=== PATIENT | female | born 1965 | race African-American/Black ===

== ENCOUNTER 2019-03-20 11:11 | Inpatient (IN) ==
[2019-03-20 12:03] LABS: Hemoglobin 15.1 g/dL (11.5-15.4); Mean Corpuscular HGB Conc 34.3 g/dL (31.6-35.5); Mean Corpuscular Volume 99.1 fL (83.0-100.0); Mean Platelet Volume 12.3 fL (9.4-12.4); Platelet Count 149 K/mcL (140-400); Red Blood Count 4.44 M/mcL (3.82-4.97); Red Cell Distribution Width 13.4 % (11.5-14.5); White Blood Count 6.1 K/mcL (4.3-11.1)
[2019-03-20 12:35] LABS: BUN/Creatinine Ratio 11 (6-26); Blood Urea Nitrogen 10 mg/dL (6-20); Calcium 9.8 mg/dL (8.6-10.3); Carbon Dioxide 27 mEq/L (23-29); Chloride 100 mEq/L (98-107); Glucose 243 mg/dL (70-105); Osmolality,Calculated 297 (280-300); Sodium 140 mEq/L (136-145); Troponin I < 0.03 ng/mL (< 0.04); eGFR For African Americans > 60 (> 60); eGFR For Non-African Americans > 60 (> 60)
[2019-03-20] MEDS ORDERED: Naloxone 0.4 MG/ML INJ IVP PRN (13:34)
[2019-03-20] MEDS ORDERED: *HR* Dextrose 50 % in Water (Syg) 50 ML SYRINGE IVP PRN (13:36)
[2019-03-20] MEDS ORDERED: Dextrose Gel 15 GM/37.5 ML TUBE PO PRN ×2 (13:36)
[2019-03-20] MEDS ORDERED: D5% in Water 1,000 ML IVC PRN (13:36)
[2019-03-20] MEDS ORDERED: Gadolinium Contrast Agent (WT Based) IV PRN (13:50)
[2019-03-20] MEDS: Aspirin 81 MG TAB.CHEW PO SCH (16:22)
[2019-03-20] MEDS: Insulin LISPRO 300 UNITS/3 ML VIAL SQ SCH (17:57)
[2019-03-20] MEDS ORDERED: Insulin LISPRO 300 UNITS/3 ML VIAL SQ SCH (21:00)
[2019-03-21 01:06] LABS: Basophils % 0.8 %; Eosinophils # 0.2 K/mcL (0.0-0.6); Eosinophils % 2.8 %; Hemoglobin 13.9 g/dL (11.5-15.4); Immature Granulocytes % 0.2 % (0-4); Mean Corpuscular HGB Conc 34.8 g/dL (31.6-35.5); Mean Corpuscular Hemoglobin 34.1 pg (28.0-33.3); Mean Platelet Volume 12.2 fL (9.4-12.4); Monocytes # 0.5 K/mcL (0.0-1.3); Monocytes % 9.6 %; Neutrophils # 2.6 K/mcL (1.6-8.9); Platelet Count 140 K/mcL (140-400); Red Blood Count 4.08 M/mcL (3.82-4.97); Red Cell Distribution Width 13.3 % (11.5-14.5); Segmented Neutrophils % 49.6 %; White Blood Count 5.3 K/mcL (4.3-11.1)
[2019-03-21 01:25] LABS: Alanine Aminotransferase 10 Units/L (7-52); Albumin 3.7 g/dL (3.5-5.7); Albumin/Globulin Ratio 1.3 (1.1-2.2); Alkaline Phosphatase 43 Units/L (34-104); Aspartate Amino Transferase 14 Units/L (13-39); BUN/Creatinine Ratio 12 (6-26); Bilirubin,Total 0.7 mg/dL (0.3-1.0); Blood Urea Nitrogen 11 mg/dL (6-20); Calcium 9.2 mg/dL (8.6-10.3); Carbon Dioxide 25 mEq/L (23-29); Chloride 100 mEq/L (98-107); Chol/HDL Ratio 2.9 (0-4.9); Cholesterol 191 mg/dL (< 200); Globulin 2.8 g/dL (2.4-3.5); Glucose 237 mg/dL (70-105); HDL Cholesterol 67 mg/dL (40-59); LDL Cholesterol,Calculated 105 mg/dL (0-99); Magnesium 1.6 mg/dL (1.6-2.6); Osmolality,Calculated 287 (280-300); Phosphorous 3.3 mg/dL (2.7-4.5); Potassium 3.2 mEq/L (3.5-5.1); Sodium 135 mEq/L (136-145); Total Protein 6.5 g/dL (6.4-8.9); Triglycerides 96 mg/dL (< 150); eGFR For African Americans > 60 (> 60); eGFR For Non-African Americans > 60 (> 60)
[2019-03-21 03:53] LABS: Estimated Average Glucose 189 mg/dl
[2019-03-21] MEDS ORDERED: *HR* Heparin 5,000 UNIT/ML VIAL SQ SCH (06:00)
[2019-03-21 07:09] VITALS: BP 145/80
[2019-03-21] MEDS: Insulin LISPRO 300 UNITS/3 ML VIAL SQ SCH (07:48)
[2019-03-21] MEDS: Metoprolol 100 MG TABLET PO SCH ×3 (07:48→10:02)
[2019-03-21] MEDS: Aspirin 81 MG TAB.CHEW PO SCH (07:51)
[2019-03-21] MEDS ORDERED: Losartan/HCTZ 50-12.5 TABLET PO SCH (09:00)
[2019-03-21] MEDS ORDERED: Sulfamethoxazole/Trimeth DS 1 EACH TABLET PO SCH (09:00)
[2019-03-21] MEDS ORDERED: amLODIPine 5 MG TABLET PO SCH ×2 (09:00)
== END 2019-03-21 13:23 | disposition home or self-care (01) | DRG 66 ==
LOC: EMEROOARM 11:11 → 3BNU 13:34 → SUATTDRO 16:30 → 3BNU 17:35
PROVIDERS: ADMIT Student in an Organized Health Care Education/Training Program; ATTEND Internal Medicine

== ENCOUNTER 2019-03-21 21:35 | Observation (INO) ==
[2019-03-21 22:04] LABS: Hematocrit 42.7 % (35.3-44.9); Hemoglobin 14.8 g/dL (11.5-15.4); Mean Corpuscular HGB Conc 34.7 g/dL (31.6-35.5); Mean Corpuscular Hemoglobin 33.5 pg (28.0-33.3); Mean Corpuscular Volume 96.6 fL (83.0-100.0); Mean Platelet Volume 12.4 fL (9.4-12.4); Platelet Count 159 K/mcL (140-400); Red Blood Count 4.42 M/mcL (3.82-4.97); Red Cell Distribution Width 13.4 % (11.5-14.5); White Blood Count 4.7 K/mcL (4.3-11.1)
[2019-03-21 22:09] LABS: Prothrombin Time 11.9 Seconds (9.4-12.1)
[2019-03-21 22:12] LABS: Activated Partial Thrombo Time 30.1 Seconds (26.0-36.0)
[2019-03-21 22:26] LABS: BUN/Creatinine Ratio 13 (6-26); Blood Urea Nitrogen 17 mg/dL (6-20); Calcium 9.8 mg/dL (8.6-10.3); Carbon Dioxide 27 mEq/L (23-29); Chloride 98 mEq/L (98-107); Glucose 291 mg/dL (70-105); Osmolality,Calculated 296 (280-300); Potassium 3.3 mEq/L (3.5-5.1); Sodium 137 mEq/L (136-145); eGFR For African Americans 53 (> 60); eGFR For Non-African Americans 44 (> 60)
[2019-03-21 22:27] LABS: Troponin I < 0.03 ng/mL (< 0.04)
[2019-03-21] MEDS ORDERED: 0.9 % Sodium Chloride 1,000 ML IVC ONE (23:54)
[2019-03-22] MEDS ORDERED: Ondansetron 4 MG/2 ML VIAL IVP PRN (02:58)
[2019-03-22] MEDS ORDERED: Naloxone 0.4 MG/ML INJ IVP PRN (02:58)
[2019-03-22] MEDS ORDERED: (Insulin Pump Cartridge [Insulin Pump] 1 DEVICE) SQ SCH (03:00)
[2019-03-22] MEDS: 0.9 % Sodium Chloride 1,000 ML IVC SCH ×2 (04:58→08:22)
[2019-03-22 05:08] LABS: Basophils % 0.9 %; Eosinophils # 0.1 K/mcL (0.0-0.6); Eosinophils % 2.5 %; Hemoglobin 14.5 g/dL (11.5-15.4); Immature Granulocytes % 0.2 % (0-4); Lymphocytes # 1.9 K/mcL (0.6-4.6); Lymphocytes % 41.8 %; Mean Corpuscular HGB Conc 33.7 g/dL (31.6-35.5); Mean Corpuscular Hemoglobin 33.6 pg (28.0-33.3); Mean Corpuscular Volume 99.8 fL (83.0-100.0); Mean Platelet Volume 12.6 fL (9.4-12.4); Monocytes # 0.4 K/mcL (0.0-1.3); Monocytes % 8.4 %; Neutrophils # 2.1 K/mcL (1.6-8.9); Platelet Count 129 K/mcL (140-400); Red Blood Count 4.31 M/mcL (3.82-4.97); Red Cell Distribution Width 13.3 % (11.5-14.5); Segmented Neutrophils % 46.2 %; White Blood Count 4.4 K/mcL (4.3-11.1)
[2019-03-22 05:28] LABS: BUN/Creatinine Ratio 16 (6-26); Blood Urea Nitrogen 15 mg/dL (6-20); Carbon Dioxide 23 mEq/L (23-29); Chloride 99 mEq/L (98-107); Glucose 282 mg/dL (70-105); Magnesium 1.7 mg/dL (1.6-2.6); Osmolality,Calculated 289 (280-300); Potassium 3.6 mEq/L (3.5-5.1); Sodium 134 mEq/L (136-145); eGFR For African Americans > 60 (> 60); eGFR For Non-African Americans > 60 (> 60)
[2019-03-22] MEDS ORDERED: *HR* Heparin 5,000 UNIT/ML VIAL SQ SCH (06:00)
[2019-03-22] MEDS ORDERED: *HR* Dextrose 50 % in Water (Syg) 50 ML SYRINGE IVP PRN (08:51)
[2019-03-22] MEDS ORDERED: D5% in Water 1,000 ML IVC PRN (08:51)
[2019-03-22] MEDS ORDERED: Dextrose Gel 15 GM/37.5 ML TUBE PO PRN ×2 (08:51)
[2019-03-22] MEDS ORDERED: Aspirin Enteric Coated 81 MG Tablet PO SCH (09:00)
[2019-03-22] MEDS ORDERED: Metoprolol 100 MG TABLET PO SCH (09:00)
[2019-03-22] MEDS ORDERED: amLODIPine 5 MG TABLET PO SCH (09:00)
[2019-03-22] MEDS ORDERED: Losartan/HCTZ 50-12.5 TABLET PO SCH (11:56)
[2019-03-22 11:58] VITALS: BP 132/78
[2019-03-22] MEDS: Insulin LISPRO 300 UNITS/3 ML VIAL SQ SCH ×2 (12:01→13:27)
== END 2019-03-22 13:45 | disposition home or self-care (01) ==
LOC: 3BNU 21:35 → EMEROOARM 21:35 → 3BNU 03-22 02:23
PROVIDERS: ADMIT Student in an Organized Health Care Education/Training Program; ATTEND Student in an Organized Health Care Education/Training Program